=== PATIENT | female | born 1965 | race Caucasian/White ===

== ENCOUNTER 2019-05-20 17:43 | Emergency (ER) | payer MEDICAID ==
[~2019-05-20] VITALS: Ht 160 cm; Wt 74.0 kg
[2019-05-20 18:18] VITALS: BP 124/70
== END 2019-05-20 21:12 | disposition left against medical advice (07) ==
LOC: ER 17:43
DX: M79.89 Other specified soft tissue disorders (principal); Z53.21 Procedure and treatment not carried out due to patient leaving prior to being seen by health care provider
CPT/HCPCS: 82962